=== PATIENT | female | born 1990 | race Caucasian/White ===

== ENCOUNTER 2016-10-28 20:25 | Emergency (ER) | payer OTHER ==
[2016-10-28 20:48] VITALS: O2SAT 96
[2016-10-28] MEDS ORDERED: SODIUM CHLORIDE 0.9% (FLUSH) 10 ML SYG IV PRN (20:49)
[2016-10-28] MEDS ORDERED: ONDANSETRON INJ 4 MG/2 ML VIAL IV ONE (20:59)
[2016-10-28] MEDS ORDERED: LIDOCAINE VIS-MYLANTA 30 ML UD PO ONE ×2 (20:59→23:39)
[2016-10-28] MEDS ORDERED: SODIUM CHLORIDE 0.9% 1000ML 1,000 ML IVS ONE (20:59)
--- NOTE | 2016-10-28 22:34 | RAD ---
PROCEDURE: Abdomen Series Clinical History: n/v epigastric pain Indication: Same as above Comparison: None Technique: Two views of the abdomen and pelvis and 1.0 view of the chest were done. Findings: There is no gross evidence of free air in the abdomen or the pelvis . The small and large bowel gas pattern does not show any evidence of obstruction, ileus or bowel wall thickening. There is no visualization of radiopaque calculi in the outline of the urinary tract. There are no discrete airspace infiltrates and pneumothoraces or pleural effusions. The cardiac mediastinal silhouette is unremarkable There is mild constipation. Impression: There is mild constipation. There are no acute findings in the chest Location of Interpretation: [id number] Electronically signed by: Trey Haas MD 10/28/2016 10:34 PM CDT
[2016-10-28] MEDS ORDERED: PROMETHAZINE HCL 25 MG TAB PO ONE (22:38)
[2016-10-28] MEDS ORDERED: PROMETHAZINE HCL 25 MG TAB ONE (23:39)
--- NOTE | 2016-10-28 23:43 | ED.PDOC ---
History of Present Illness - General Chief Complaint: Abdominal Pain Stated Complaint: abdominal pain x 2 hrs Time Seen by Provider: 10/28/16 20:40 Source: patient, family Exam Limitations: no limitations - History of Present Illness Initial Comments: the patient is a 26-year-old female presenting to the emergency room secondary to 3-4 hours of nausea and vomiting with epigastric and right upper quadrant discomfort. No definite fevers. No blood and no bile. She did apparently have a little bit of diarrhea yesterday. No syncope or near syncope but she does have a mild headache now that she has been vomiting. She is unsure if she is . Timing/Duration: 4-6 hours Severity: moderate Improving Factors: nothing Worsening Factors: nothing Associated Symptoms: loss of appetite, malaise, nausea/vomiting Allergies/Adverse Reactions: Allergies Hydromorphone [From Dilaudid] Allergy (Verified 06/24/12 11:22) Home Medications: Ambulatory Orders Ondansetron [Zofran Odt] 4 mg PO Q4H PRN #10 tab 10/28/16 Review of Systems - Review of Systems Constitutional: States: malaise EENTM: States: no symptoms reported Respiratory: States: no symptoms reported Cardiology: States: no symptoms reported Gastrointestinal/Abdominal: States: see HPI Genitourinary: States: no symptoms reported Musculoskeletal: States: no symptoms reported Skin: States: no symptoms reported Neurological: States: weakness Endocrine: States: increased thirst All other Systems: No Change from Baseline Past Medical History (General) - Patient Medical History Hx Seizures: No Hx Stroke: No Hx Dementia: No Hx Asthma: No Hx of COPD: No Hx Cardiac Disorders: No Hx Congestive Heart Failure: No Hx Pacemaker: No Hx Hypertension: No Hx Thyroid Disease: No Hx Diabetes: No Hx Gastroesophageal Reflux: Yes - stomach ulcers Hx Renal Disease: No Hx of HIV: No Hx MRSA: No Surgical History: no surgical history - Vaccination History Hx Influenza Vaccination: No - Social History Hx Tobacco Use: No Hx Alcohol Use: No Hx Depression: No - Female History Hx Last Menstrual Period: 10/15/16 - Triage Comment ED Triage Comment: Pt states she thinks she might have stomach ulcers, states she is having burning in upper abdomen region for the past 2 hrs. Also thinks she might have an UTI. Family Medical History - Family History Mother Family History: Unknown Physical Exam - Physical Exam General Appearance: Alert, Other - vomiting Eye Exam: bilateral normal Ears, Nose, Throat: hearing grossly normal, normal ENT inspection, normal pharynx Neck: non-tender, full range of motion, supple Respiratory: chest non-tender, lungs clear, normal breath sounds, no respiratory distress, no accessory muscle use Cardiovascular/Chest: normal peripheral pulses, regular rate, rhythm, no edema Peripheral Pulses: radial,right: 2+, radial,left: 2+, dorsalis pedis,right: 2+, dorsalis pedis,left: 2+ Gastrointestinal/Abdominal: other - the patient has diffuse epigastric and right upper quadrant discomfort palpation. 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 The patient responded to nausea medications well. She'll be written a prescription for Zofran to use over the next few days if needed as an outpatient to keep herself hydrated. A bland diet is recommended. She should also take Pepcid 20 mg twice daily for the next week. She can scrap picker some Maalox as well to take as needed for any acute heartburn issues. ER warnings are given for any acute worsening. - Results/Orders Results/Orders: Laboratory Tests 10/28/16 10/28/16 10/28/16 21:00 21:00 21:00 WBC 7.3 RBC 3.92 L Hgb 10.9 L Hct 33.1 L MCV 84.4 MCH 27.8 MCHC 32.9 L RDW 14.9 H Plt Count 210 MPV 9.2 Absolute Neuts (auto) 4.20 Absolute Lymphs (auto) 2.50 Absolute Monos (auto) 0.50 Absolute Eos (auto) 0.10 Absolute Basos (auto) 0.00 Neutrophils % 57.5 Lymphocytes % 34.2 Monocytes % 6.6 Eosinophils % 1.3 Basophils % 0.4 PT INR PTT (SP) Sodium 139 Potassium 3.5 L Chloride 105 Carbon Dioxide 28 Anion Gap 9.5 L BUN 11 Creatinine 0.51 L BUN/Creatinine Ratio 21.6 H Random Glucose 80 Serum Osmolality 275.9 Calcium 9.6 Total Bilirubin Direct Bilirubin Indirect Bilirubin AST ALT Alkaline Phosphatase Serum Total Protein Albumin Globulin Albumin/Globulin Ratio Amylase Lipase Serum HCG, Qual Urine Color Yellow Urine Appearance Clear Urine pH 7.0 Ur Specific [place] 1.015 Urine Protein Negative Urine Glucose (UA) Negative Urine Ketones Negative Urine Blood Small H Urine Nitrite Negative Urine Bilirubin Negative Urine Urobilinogen 0.2 Ur Leukocyte Esterase Small H Urine RBC 1-3 Urine WBC 3-5 H Ur Epithelial Cells 3-5 Urine Bacteria 1+ 10/28/16 10/28/16 10/28/16 21:00 21:00 21:00 WBC RBC Hgb Hct MCV MCH MCHC RDW Plt Count MPV Absolute Neuts (auto) Absolute Lymphs (auto) Absolute Monos (auto) Absolute Eos (auto) Absolute Basos (auto) Neutrophils % Lymphocytes % Monocytes % Eosinophils % Basophils % PT 10.3 INR 0.910 PTT (SP) 30.4 Sodium Cancelled Potassium Cancelled Chloride Cancelled Carbon Dioxide Cancelled Anion Gap Cancelled BUN Cancelled Creatinine Cancelled BUN/Creatinine Ratio Cancelled Random Glucose Cancelled Serum Osmolality Cancelled Calcium Cancelled Total Bilirubin 0.4 Direct Bilirubin < 0.1 Indirect Bilirubin 0.3 AST 16 ALT 10 Alkaline Phosphatase 31 L Serum Total Protein 7.5 Albumin 4.4 Globulin Cancelled Albumin/Globulin Ratio Cancelled Amylase 42 Lipase 35 Serum HCG, Qual Negative Urine Color Urine Appearance Urine pH Ur Specific [place] Urine Protein Urine Glucose (UA) Urine Ketones Urine Blood Urine Nitrite Urine Bilirubin Urine Urobilinogen Ur Leukocyte Esterase Urine RBC Urine WBC Ur Epithelial Cells Urine Bacteria acute abdominal series shows no evidence of obstruction or free air. Mild constipation. No infiltrates in the lung [place]. No fluid overload or pneumothorax. Departure - Departure Clinical Impression: Gastroenteritis Disposition: Discharge to Home or Self Care Condition: Fair Departure Forms: ED Discharge - Pt. Copy, Patient Portal Self Enrollment Instructions: DI for Viral Gastroenteritis -- Adult Diet: bland diet Activity: increase activity as tolerated Referrals: PETER SCHERER [Primary Care Provider] - 1-2 Weeks Prescriptions: Ondansetron [Zofran Odt] 4 mg PO Q4H PRN #10 tab PRN Reason: Vomiting Home Medications: Ambulatory Orders Ondansetron [Zofran Odt] 4 mg PO Q4H PRN #10 tab 10/28/16 Additional Instructions: the patient is a 26-year-old female presenting to the emergency room secondary to what appears to be acute gastroenteritis with primarily nausea and vomiting and abdominal pain. The patient responded to nausea medications well. She'll be written a prescription for Zofran to use over the next few days if needed as an outpatient to keep herself hydrated. A bland diet is recommended. She should also take Pepcid 20 mg twice daily for the next week. She can scrap picker some Maalox as well to take as needed for any acute heartburn issues. ER warnings are given for any acute worsening.
[2016-10-29 01:16] VITALS: BP 99/64; TEMP 97.5
== END 2016-10-29 00:20 | disposition home or self-care (01) ==
LOC: ER 20:25
DX: K52.9 Noninfective gastroenteritis and colitis, unspecified (principal); K21.9 Gastro-esophageal reflux disease without esophagitis; Z88.6 Allergy status to analgesic agent
CPT/HCPCS: 36415; 74020; 80048; 80076; 81001; 82150; 83690; 84703; 85025; 85610; 85730; 87086; J2405; J7030; Q0169